=== PATIENT | female | born 1985 | race Caucasian/White ===

== ENCOUNTER 2016-11-25 | Outpatient (CLI) | payer MEDICAID | END 2016-11-25 05:47 | disposition critical access hospital (66) | CPT/HCPCS: A0425; A0429 ==

== ENCOUNTER 2016-11-25 06:08 | Emergency (ER) | payer MEDICAID ==
[2016-11-25] MEDS ORDERED: HYDROmorphone 1 MG/ML SYRINGE IM STA (06:22)
[2016-11-25] MEDS ORDERED: HYDROmorphone 1 MG/ML SYRINGE ONE (06:26)
[2016-11-25] MEDS ORDERED: LIDOCAINE-MPF 1% 5 ML VIAL ONE (07:38)
[2016-11-25] MEDS ORDERED: BUPIVACAINE 0.5% PF 30 ML VIAL ONE (07:39)
[2016-11-25] MEDS ORDERED: SULFAMETH/TRIMETH DS 800/160 MG TABLET PO STA (09:20)
[2016-11-25] MEDS ORDERED: SULFAMETH/TRIMETH DS 800/160 MG TABLET PO ONE (09:22)
== END 2016-11-25 10:25 | disposition home or self-care (01) ==
DX: S62.663A Nondisplaced fracture of distal phalanx of left middle finger, initial encounter for closed fracture (principal); S62.665A Nondisplaced fracture of distal phalanx of left ring finger, initial encounter for closed fracture; S61.303A Unspecified open wound of left middle finger with damage to nail, initial encounter; S61.305A Unspecified open wound of left ring finger with damage to nail, initial encounter; V48.5XXA Car driver injured in noncollision transport accident in traffic accident, initial encounter; Y92.488 Other paved roadways as the place of occurrence of the external cause
CPT/HCPCS: 11730; 73130; 96372; 99283; 99284; A9270; J1170

== ENCOUNTER 2018-02-12 17:04 | Emergency (ER) | payer SELFPAY ==
[2018-02-12 17:12] VITALS: BP 115/75
[2018-02-12] MEDS ORDERED: IPRATROPIUM/ALBUTEROL 3 ML NEB INH STA (17:29)
[2018-02-12] MEDS ORDERED: DEXAMETHASONE 10 MG/ML VIAL PO STA (17:29)
--- NOTE | 2018-02-12 17:36 | ED Physician Documentation ---
PD HPI DYSPNEA - Stated complaint Stated Complaint: COUGH/WHEEZY - Chief complaint Chief Complaint: Resp - History obtained from History obtained from: Patient - History of Present Illness Timing - onset: How many weeks ago (3) Timing - onset during: Rest Timing - duration: Weeks (3) Timing - details: Gradual onset, Still present Inciting event(s): URI Improved by: Rest Worsened by: Exertion, Coughing Associated symptoms: Cough, Wheezing Similar symptoms before: Diagnosis (bronchitis) Recently seen: Not recently seen - Additional information Additional information: 32-year-old female who is had a cough and congestion for the past 3 weeks has developed increasing dyspnea and wheezing. She is finding it difficult to get a full deep breath and she is come to the emergency department for evaluation. Review of Systems Constitutional: denies: Fever, Chills Eyes: denies: Decreased vision Ears: denies: Ear pain Nose: reports: Rhinorrhea / runny nose, Congestion Throat: denies: Sore throat Cardiac: denies: Chest pain / pressure, Palpitations Respiratory: reports: Dyspnea, Cough, Wheezing GI: denies: Abdominal Pain, Nausea, Vomiting : denies: Dysuria PD PAST MEDICAL HISTORY - Past Surgical History Past Surgical History: No - Present Medications Home Medications: Ambulatory Orders Medication Instructions Recorded Confirmed Albuterol Sulf [Ventolin Hfa 1 - 2 puffs INH Q4HR PRN #1 inhaler 02/12/18 Inhaler] Azithromycin [Zithromax] 250 mg PO DAILY #4 tablet 02/12/18 predniSONE [Deltasone] 10 mg PO DAILY #26 tablet 02/12/18 - Allergies Allergies/Adverse Reactions: Allergies Allergy/AdvReac Type Severity Reaction Status Date / Time amoxicillin Allergy Hives Verified 02/12/18 17:12 - Social History Does the pt smoke?: No Smoking Status: Never smoker - Immunizations Immunizations are current?: Yes PD ED PE NORMAL - Vitals Vital signs reviewed: Yes (tachy ) - General General: Alert and oriented X 3, No acute distress, Well developed/nourished, Other (tachypneic at rest with audible wheeze) - HEENT HEENT: Atraumatic, PERRL, EOMI, Ears normal, Moist mucous membranes, Pharynx benign, Dentition benign - Neck Neck: Supple, no meningeal sign, No bony TTP - Cardiac Cardiac: No murmur, Other (tachy to 110) - Respiratory Respiratory: Other (tachypneic with loud audible wheeze scattered throughout) - Abdomen Abdomen: Soft, Non tender - Back Back: No CVA TTP, No spinal TTP - Derm Derm: Normal color, Warm and dry, No rash - Extremities Extremities: No deformity, No edema - Neuro Neuro: No motor deficit, No sensory deficit Eye Opening: Spontaneous Motor: Obeys Commands Verbal: Oriented GCS Score: 15 - Psych Psych: Normal mood, Normal affect Results - Vitals Vitals: Vital Signs - 24 hr 02/12/18 02/12/18 17:10 17:35 Temperature 37.0 C Heart Rate 107 H 102 H Respiratory 20 20 Rate Blood Pressure 115/75 O2 Saturation 98 Oxygen O2 Source Room air - Rads (name of study) 2 veiw chest Radiology: Prelim report reviewed (Impression: Normal 2 view chest radiography.) , EMP read indepedently, See rad report PD MEDICAL DECISION MAKING - ED course Complexity details: reviewed results, re-evaluated patient, considered differential, d/w patient ED course: 32-year-old female with acute reactive airway disease and bronchitis as some improvement with use of DuoNeb treatment she is given 10 mg of dexamethasone orally. We do not have albuterol inhaler for her to take home. She is administered an initial dose of azithromycin here as well. Departure - Departure Disposition: 01 Home, Self Care Clinical Impression: Bronchitis Reactive airway disease Qualifiers: Asthma severity: mild Asthma persistence: intermittent Asthma complication type : with acute exacerbation Qualified Code(s): J45.21 - Mild intermittent asthma with (acute) exacerbation Condition: Stable Instructions: ED Bronchitis Asthmatic Follow-Up: Your, doctor [Other] Prescriptions: Albuterol Sulf [Ventolin Hfa Inhaler] 1 - 2 puffs INH Q4HR PRN #1 inhaler PRN Reason: Shortness Of Air/Wheezing Azithromycin [Zithromax] 250 mg PO DAILY #4 tablet predniSONE [Deltasone] 10 mg PO DAILY #26 tablet Discharge Date/Time: 02/12/18 18:54
--- NOTE | 2018-02-12 17:45 | XRAY Preliminary Report ---
Exam: XR CHEST 2 VIEW X-RAY IMPRESSION: Normal 2-view chest radiography. [facility] SITE ID: [id number]
[2018-02-12] MEDS ORDERED: CHERRY SYRUP 10 ML UDC PO ONE (17:47)
--- NOTE | 2018-02-12 18:02 | XRAY Report ---
EXAM: CHEST RADIOGRAPHY EXAM DATE: 02/12/2018 05:31 PM. CLINICAL HISTORY: Cough, shortness of air. COMPARISON: None. TECHNIQUE: 2 views. FINDINGS: Lungs/Pleura: No focal opacities evident. No pleural effusion. No pneumothorax. Normal volumes. Mediastinum: Heart and mediastinal contours are unremarkable. Other: None. IMPRESSION: Normal 2-view chest radiography. [facility] Referring Provider Line: [phone] SITE ID: [id number]
[2018-02-12] MEDS ORDERED: AZITHROMYCIN 250 MG TABLET PO STA (18:28)
== END 2018-02-12 18:54 | disposition home or self-care (01) ==
LOC: ED 17:04
DX: J45.21 Mild intermittent asthma with (acute) exacerbation (principal); J40 Bronchitis, not specified as acute or chronic
CPT/HCPCS: 71046; 94640; 94664; 99283; A9270